=== PATIENT | male | born 1950 | race Two or more races ===

== ENCOUNTER 2019-07-19 12:58 | Emergency (ER) | payer MEDICARE, OTHER ==
[~2019-07-19] VITALS: Ht 175.3 cm; Wt 117.9 kg
[~2019-07-19 12:58] MED LIST: AMLO10TA13; ASPI81CH43; ATEN100T; BUSP10TA90 PO; GLIP10TA9 PO; HYDR-3682 PO; HYDR-4296 PO; OMEG100062; SERTRALINE; SIMV-13 PO; [UNRECOGNIZED DRUG - CODE]
[2019-07-19 17:25] VITALS: BP 138/79
== END 2019-07-19 17:17 | disposition home or self-care (01) ==
LOC: ER 12:58
DX: B34.9 Viral infection, unspecified (principal); E11.9 Type 2 diabetes mellitus without complications; E78.5 Hyperlipidemia, unspecified; I10 Essential (primary) hypertension; I25.2 Old myocardial infarction; Z88.1 Allergy status to other antibiotic agents; Z88.8 Allergy status to other drugs, medicaments and biological substances; Z79.899 Other long term (current) drug therapy
CPT/HCPCS: 82962

== ENCOUNTER 2021-12-31 12:00 | Emergency (ER) | payer OTHER ==
[~2021-12-31] VITALS: Ht 175.3 cm; Wt 99.8 kg
[~2021-12-31 12:00] MED LIST changes: +AMLO-496; -AMLO10TA13
[2021-12-31] MEDS ORDERED: InsuLIN REG 1unit/0.01ml Soln (100units/ml) IV ONE ×2 (12:15→17:30)
[2021-12-31] MEDS ORDERED: SODIUM CHLORIDE 0.9% 500 ML IV ONE ×2 (12:15→17:30)
[2021-12-31 12:54] LABS: Basophils # (auto) 0.2 10 ^3/uL (0-0.2); Basophils % (auto) 2.5 % (0.0-2.0); Eosinophils # (auto) 0.1 10 ^3/uL (0-0.8); Eosinophils % (auto) 1.5 % (0.0-7.0); Hematocrit 47.2 % (41.0-53.0); Hemoglobin 16.1 g/dL (13.5-17.5); Lymphocytes # (auto) 2.1 10 ^3/uL (0.4-5.4); Lymphocytes % (auto) 30.1 % (10.0-50.0); Mean Corpuscular Hemoglobin 28.6 pg (28.0-32.0); Mean Corpuscular Hgb Conc. 34.1 g/dL (32.0-36.0); Mean Corpuscular Volume 83.8 fL (80.0-100.0); Monocytes # (auto) 0.4 10 ^3/uL (0-1.3); Monocytes % (auto) 6.1 % (0.0-12.0); Neutrophils # (auto) 4.1 10 ^3/uL (1.6-8.6); Neutrophils % (auto) 59.8 % (37.0-80.0); Red Blood Cells 5.63 10^6/uL (4.5-5.90); Red Cell Distribution Width 14.4 % (11.8-14.3); White Blood Cell 6.9 10^3/uL (4.4-10.8)
[2021-12-31 13:10] LABS: Albumin 3.7 g/dL (3.4-5.0); Calcium 9.3 mg/dL (8.5-10.1); Potassium 4.1 mmol/L (3.5-5.1)
[2021-12-31 13:13] LABS: Bilirubin, Total 0.5 mg/dL (0.2-1.0); Total Protein 7.6 g/dL (6.4-8.2)
[2021-12-31 16:10] LABS: Urine Bacteria NONE SEEN /hpf (None Seen); Urine Blood Negative /uL (Negative); Urine Hyaline Cast FEW /lpf (0 - 2); Urine Specific Gravity 1.023 (1.001-1.035); Urine WBC 1 /hpf (0 - 3)
[2021-12-31 18:39] VITALS: BP 141/81
== END 2021-12-31 18:40 | disposition home or self-care (01) ==
LOC: ER 12:00
DX: E11.65 Type 2 diabetes mellitus with hyperglycemia (principal); R53.1 Weakness; E78.5 Hyperlipidemia, unspecified; I10 Essential (primary) hypertension; I25.2 Old myocardial infarction; Z86.73 Personal history of transient ischemic attack (TIA), and cerebral infarction without residual deficits; Z95.1 Presence of aortocoronary bypass graft; Z90.89 Acquired absence of other organs; Z79.82 Long term (current) use of aspirin; Z79.899 Other long term (current) drug therapy; Z88.1 Allergy status to other antibiotic agents; Z88.8 Allergy status to other drugs, medicaments and biological substances
CPT/HCPCS: 36415; 71046; 80053; 81001; 82010; 82962; 85025; 93005; 96361; 96374; 96376; 99285; J1815; J7030

== ENCOUNTER 2024-01-25 14:44 | Inpatient (IN) | payer MEDICARE, OTHER ==
[~2024-01-25] VITALS: Ht 177.8 cm; Wt 101.0 kg
[~2024-01-25 14:44] MED LIST changes: -AMLO-496; +AMLO1TAB23; -HYDR-4296 PO; +HYDR25TA88 PO; -SIMV-13 PO; +SIMV40TA18 PO
[2024-01-25 15:29] LABS: Basophils # (auto) 0.1 10 ^3/uL (0-0.2); Eosinophils # (auto) 0.1 10 ^3/uL (0-0.8); Eosinophils % (auto) 1.1 % (0.0-7.0); Hemoglobin 17.5 g/dL (13.5-17.5); Monocytes # (auto) 0.7 10 ^3/uL (0-1.3)
[2024-01-25 15:33] LABS: Basophils % (auto) 1.3 % (0.0-2.0); Hematocrit 52.3 % (41.0-53.0); Mean Corpuscular Hemoglobin 28.5 pg (28.0-32.0); Mean Corpuscular Hgb Conc. 33.4 g/dL (32.0-36.0); Mean Corpuscular Volume 85.4 fL (80.0-100.0); Neutrophils # (auto) 4.1 10 ^3/uL (1.6-8.6); Neutrophils % (auto) 58.6 % (37.0-80.0); Nucleated Red Blood Cells % 0.4 %; Red Blood Cells 6.12 10^6/uL (4.5-5.90); Red Cell Distribution Width 14.3 % (11.8-14.3)
[2024-01-25 15:47] LABS: Alanine Aminotransferase 15 U/L (7-40); Albumin 4.2 g/dL (3.2-4.8); Alkaline Phosphatase 79 U/L (46-116); Anion Gap 5 (5-15); Aspartate Aminotransferase 11 U/L (13-40); BUN/Creatinine Ratio 13.7 (10.0-20.0); Blood Urea Nitrogen 20 mg/dL (9-23); Calcium 10.2 mg/dL (8.7-10.4); Carbon Dioxide 29 mmol/L (20-30); Chloride 106 mmol/L (98-107); Glucose 214 mg/dL (74-106); Potassium 3.9 mmol/L (3.5-5.1); Sodium 140 mmol/L (136-145)
[2024-01-25 15:48] VITALS: PULSE 62; RESP 24; O2SAT 97
[2024-01-25 15:48] LABS: Bilirubin, Total 0.6 mg/dL (0.2-1.0); Total Protein 7.4 g/dL (5.7-8.2)
[2024-01-25 15:50] LABS: INR 1.04 (0.9-1.15); Prothrombin Time 10.9 sec (9.3-11.8)
[2024-01-25 16:11] LABS: Urine Bacteria None Seen /hpf (None Seen)
[2024-01-25 16:19] LABS: Urine Amorphous Crystal FEW /hpf (None Seen); Urine Blood Negative /uL (Negative); Urine Clarity Clear (Clear); Urine Color Light-Yellow (Yellow); Urine Protein, UAD Negative (Negative); Urine Specific Gravity 1.033 (1.001-1.035); Urine Urobilinogen Normal (Negative); Urine WBC 12 /hpf (0 - 3)
[2024-01-25] MEDS ORDERED: NITROGLYCERIN 0.4 MG SL TAB SL PRN ×2 (16:30→17:30)
[2024-01-25] MEDS ORDERED: MORPHINE SULFATE INJ 2 MG/ml SYRG IV PRN ×2 (16:30→17:30)
[2024-01-25] MEDS ORDERED: DEXTROSE (50%) 50ML SYRG IV PRN (17:00)
[2024-01-25] MEDS ORDERED: ACETAMINOPHEN 325 MG TAB PO PRN (17:30)
[2024-01-25] MEDS: cefTRIAXone 1GM/50ML D5W 50 ML IV ONE (17:31)
[2024-01-25] MEDS: ACCU-CHEK COMFORT CURVE STRIP VI SCH (17:31)
[2024-01-25] MEDS: InsuLIN REG 1unit/0.01ml Soln (100units/ml) SC SCH (17:33)
[2024-01-25] MEDS: hydrALAZINE HCL 20 MG/ML VL IV SCH (17:34)
[2024-01-25] MEDS: SODIUM CHLORIDE 0.9% 1,000 ML IV SCH (17:39)
[2024-01-25 17:47] LABS: Magnesium 2.1 mg/dL (1.6-2.6)
[2024-01-25 19:00] VITALS: PULSE 70; RESP 20; O2SAT 91
[2024-01-25] MEDS: SODIUM CHLORIDE 0.9% 1,000 ML IV ONE (19:10)
[2024-01-25] MEDS: ALBUTEROL SULF 2.5 MG/0.5ML(0.5%) NEB SOLN ONE (22:00)
[2024-01-25] MEDS: OMEGA PO SCH (22:00)
[2024-01-25] MEDS: hydrOXYzine 25 MG TAB or CAP PO SCH (22:17)
[2024-01-25] MEDS: hydrALAZINE HCL 25 MG TAB PO SCH (22:17)
[2024-01-25] MEDS: ATORVASTATIN 20 MG TAB PO SCH ×2 (22:18→22:21)
[2024-01-25] MEDS: busPIRone HCL 10 MG TAB PO SCH (22:18)
[2024-01-26] VITALS (7 sets, daily range): BP systolic 134–185; BP diastolic 77–98; PULSE 64–95; RESP 14–20; TEMP 97.7–98.4; O2SAT 95–96
[2024-01-26] MEDS: hydrALAZINE HCL 20 MG/ML VL IV PRN (05:38)
[2024-01-26 07:03] LABS: Basophils # (auto) 0.1 10 ^3/uL (0-0.2); Basophils % (auto) 0.8 % (0.0-2.0); Eosinophils # (auto) 0.1 10 ^3/uL (0-0.8); Eosinophils % (auto) 0.8 % (0.0-7.0); Hematocrit 49.3 % (41.0-53.0); Hemoglobin 16.3 g/dL (13.5-17.5); Lymphocytes # (auto) 1.9 10 ^3/uL (0.4-5.4); Lymphocytes % (auto) 21.3 % (10.0-50.0); Mean Corpuscular Hemoglobin 28.4 pg (28.0-32.0); Mean Corpuscular Hgb Conc. 33.1 g/dL (32.0-36.0); Mean Corpuscular Volume 85.6 fL (80.0-100.0); Monocytes # (auto) 0.8 10 ^3/uL (0-1.3); Monocytes % (auto) 8.9 % (0.0-12.0); Neutrophils # (auto) 6.2 10 ^3/uL (1.6-8.6); Neutrophils % (auto) 68.2 % (37.0-80.0); Nucleated Red Blood Cells % 0.3 %; Red Blood Cells 5.76 10^6/uL (4.5-5.90); Red Cell Distribution Width 14.5 % (11.8-14.3); White Blood Cell 9.1 10^3/uL (4.4-10.8)
[2024-01-26 07:23] LABS: Alanine Aminotransferase 11 U/L (7-40); Alkaline Phosphatase 73 U/L (46-116); Anion Gap 9 (5-15); BUN/Creatinine Ratio 13.5 (10.0-20.0); Blood Urea Nitrogen 15 mg/dL (9-23); Calcium 9.3 mg/dL (8.5-10.1); Carbon Dioxide 25 mmol/L (20-30); Chloride 110 mmol/L (98-107); Potassium 3.5 mmol/L (3.5-5.1); Sodium 144 mmol/L (136-145)
[2024-01-26 07:25] LABS: Albumin 3.8 g/dL (3.2-4.8); Aspartate Aminotransferase 15 U/L (13-40); Bilirubin, Total 0.6 mg/dL (0.2-1.0); Total Protein 6.5 g/dL (5.7-8.2)
[2024-01-26 07:27] LABS: Glucose 111 mg/dL (74-106)
[2024-01-26] MEDS: ATENOLOL 25 MG TAB PO SCH (10:00)
[2024-01-26] MEDS ORDERED: ENOXAPARIN SOD 30 MG/0.3 ML SYRINGE SC SCH (10:00)
[2024-01-26] MEDS ORDERED: ENOXAPARIN SOD 40 MG/0.4 ML SYRINGE SC SCH (10:00)
[2024-01-26] MEDS: cefTRIAXone 1GM/50ML D5W 50 ML IV SCH (11:12)
[2024-01-26] MEDS: ASPirin 81 mg TAB PO SCH (11:13)
[2024-01-26] MEDS: amLODIPine BESYLATE 5 MG TAB PO SCH (11:13)
[2024-01-27] VITALS (8 sets, daily range): BP systolic 128–167; BP diastolic 56–85; PULSE 61–95; RESP 18–20; TEMP 97.5–98.3; O2SAT 88–98
[2024-01-27 05:49] LABS: Anion Gap 6 (5-15); Carbon Dioxide 27 mmol/L (20-30); Chloride 110 mmol/L (98-107); Potassium 3.6 mmol/L (3.5-5.1); Sodium 143 mmol/L (136-145)
[2024-01-27 05:51] LABS: Calcium 9.5 mg/dL (8.7-10.4)
[2024-01-27 05:55] LABS: BUN/Creatinine Ratio 12.1 (10.0-20.0); Blood Urea Nitrogen 16 mg/dL (9-23); Glucose 105 mg/dL (74-106)
[2024-01-28] VITALS (8 sets, daily range): BP systolic 89–168; BP diastolic 56–86; PULSE 63–91; RESP 17–22; TEMP 97.5–98.2; O2SAT 94–98
[2024-01-28 05:54] LABS: Anion Gap 5 (5-15); Carbon Dioxide 27 mmol/L (20-30); Chloride 106 mmol/L (98-107); Potassium 3.5 mmol/L (3.5-5.1); Sodium 138 mmol/L (136-145)
[2024-01-28 05:55] LABS: Calcium 9.2 mg/dL (8.7-10.4)
[2024-01-28 05:59] LABS: Glucose 143 mg/dL (74-106)
[2024-01-28 06:00] LABS: BUN/Creatinine Ratio 12.5 (10.0-20.0); Blood Urea Nitrogen 16 mg/dL (9-23)
[2024-01-29] VITALS (9 sets, daily range): BP systolic 108–163; BP diastolic 43–83; PULSE 50–75; RESP 17–19; TEMP 97.2–98; O2SAT 91–98
[2024-01-30] VITALS (10 sets, daily range): BP systolic 123–139; BP diastolic 44–98; PULSE 52–62; RESP 17–20; TEMP 97.8–98.2; O2SAT 93–98
[2024-01-30] MEDS: CIPROFLOXACIN HCL 500 MG TAB PO SCH (21:40)
[2024-01-31 05:00] VITALS: BP 145/69; PULSE 53; RESP 16; O2SAT 96
[2024-01-31 08:00] VITALS: PULSE 55; PULSE 56; RESP 20; O2SAT 96
[2024-01-31 08:27] VITALS: BP 146/66; PULSE 55; RESP 20; TEMP 97.9
[2024-01-31] MEDS ORDERED: ATENOLOL 25 MG TAB PO SCH (10:00)
== END 2024-01-31 09:10 | DRG 70 ==
LOC: ER 14:44 → EDBD 14:44 → TELE 17:19 → TELE-WESTW 01-26 03:40
PROVIDERS: ADMIT Nurse Practitioner Family; ATTEND Nurse Practitioner Acute Care
DX: G93.41 Metabolic encephalopathy (principal); N17.0 Acute kidney failure with tubular necrosis; N39.0 Urinary tract infection, site not specified; I13.0 Hypertensive heart and chronic kidney disease with heart failure and stage 1 through stage 4 chronic kidney disease, or unspecified chronic kidney disease; I50.32 Chronic diastolic (congestive) heart failure; I16.0 Hypertensive urgency; E11.65 Type 2 diabetes mellitus with hyperglycemia; F32.A Depression, unspecified; I44.7 Left bundle-branch block, unspecified; F03.90 Unspecified dementia, unspecified severity, without behavioral disturbance, psychotic disturbance, mood disturbance, and anxiety; N18.9 Chronic kidney disease, unspecified; E11.22 Type 2 diabetes mellitus with diabetic chronic kidney disease; E66.01 Morbid (severe) obesity due to excess calories; R00.1 Bradycardia, unspecified; E78.5 Hyperlipidemia, unspecified; Z95.1 Presence of aortocoronary bypass graft; Z83.3 Family history of diabetes mellitus; Z86.73 Personal history of transient ischemic attack (TIA), and cerebral infarction without residual deficits; Z68.31 Body mass index [BMI] 31.0-31.9, adult; Z88.0 Allergy status to penicillin
CPT/HCPCS: 36415; 70450; 71045; 80048; 80053; 80061; 81001; 82962; 83036; 83735; 83880; 83930; 84443; 84484; 85025; 85610; 85730; 87086; 93005; 93306; 97110; 97116; 97163; 97530; G0378; J1815